=== PATIENT | female | born 1960 | race Caucasian/White ===

== ENCOUNTER 2018-04-09 18:53 | Emergency (ER) | payer OTHER ==
[~2018-04-09] VITALS: Ht 170.2 cm; Wt 121.9 kg
[2018-04-09] MEDS ORDERED: PERCOCET 5/31 TABLET PO (20:20)
[2018-04-09 20:39] VITALS: BP 176/87
== END 2018-04-09 20:41 | disposition home or self-care (01) ==
LOC: EME 18:53
DX: S42.292A Other displaced fracture of upper end of left humerus, initial encounter for closed fracture (principal); W18.09XA Striking against other object with subsequent fall, initial encounter; Y92.810 Car as the place of occurrence of the external cause; I10 Essential (primary) hypertension; F17.200 Nicotine dependence, unspecified, uncomplicated
CPT/HCPCS: 73030; 73060; 73070; 99281; 99284